=== PATIENT | female | born 1985 | race Caucasian/White ===

== ENCOUNTER → 2017-01-14 | Outpatient (CLI) | payer OTHER ==
[~2017-01-14] MED LIST: CLON0.5T3 PO; LEVO100T7 PO; METO50TA7 PO; NORE1TAB61 PO; OMEP20TA PO; PRLSR20 PO; VENL150C56 PO
== END | disposition home or self-care (01) ==
LOC: C.LAB1850 11:26
PROVIDERS: ATTEND Internal Medicine
DX: E03.9 Hypothyroidism, unspecified (principal)

== ENCOUNTER → 2017-02-03 | Outpatient (CLI) | payer OTHER ==
[2017-02-03 12:51] LABS: URINE APPEARANCE CLEAR (CLEAR); URINE BILIRUBIN NEG (NEG); URINE COLOR YELLOW; URINE EPITHELIAL CELL AUTO 20-30 /lpf (0-5); URINE NITRITE NEG (NEG); URINE SPECIFIC GRAVITY 1.014 (1.000-1.030); UROBILINOGEN NEG (NEG)
[2017-02-03 13:00] LABS: MANUAL MICROSCOPIC REQUIRED? NO; REVIEW REQ? NO
== END | disposition home or self-care (01) ==
LOC: C.LABBFT 10:32
PROVIDERS: ATTEND Internal Medicine
DX: R39.9 Unspecified symptoms and signs involving the genitourinary system (principal)

== ENCOUNTER → 2017-02-09 | Outpatient (CLI) | payer OTHER ==
[2017-02-09 13:01] LABS: LYME DISEASE AB IGG NEG (NEG); LYME DISEASE AB IGM NEG (NEG)
== END | disposition home or self-care (01) ==
LOC: C.LAB1850 08:27
PROVIDERS: ATTEND Internal Medicine
DX: M25.50 Pain in unspecified joint (principal); E03.9 Hypothyroidism, unspecified

== ENCOUNTER 2017-03-11 10:21 | Emergency (ER) | payer OTHER ==
[~2017-03-11] VITALS: Ht 157.5 cm; Wt 65.2 kg
[~2017-03-11 10:21] MED LIST changes: -LEVO100T7 PO
[2017-03-11 10:30] VITALS: TEMP 36.7; Ht 157.5 cm; Wt 65.2 kg
[2017-03-11] MEDS ORDERED: LEVO100T7 PO (11:00)
--- NOTE | 2017-03-11 11:25 | EMERGENCY ROOM VISIT NOTE ---
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 Patient was attempting to draw blood from a patient when he pulled his arm away, causing her to puncture her left second finger with a dirty needle. This occurred yesterday in the outpatient lab at the [facility]. Immediately stopped and cleansed the finger with soap and water. Bleeding was controlled. She denies numbness, tingling, or loss of motion. She contacted her supervisor fine grading, but apparently they were unable to arrange follow-up until today. Source patient is known. History of the source patient is not known at this time. She has had the hepatitis B vaccination and her tetanus is current. This is her third needle stick injury while working at this facility. PMH: Electronic medical records are reviewed and summarized as above/below. See Problem List. SOCIAL HISTORY: Patient is a 30-year-old female who lives with family. The patient works at [employer]. Physical Exam: VITALS: Nursing notes reviewed and vitals are stable. GENERAL: Pleasant 31-year-old white female who is awake and alert and in no acute distress. SKIN: Warm and dry with good turgor. No abrasions. No skin injury noted to the left second finger. No edema. Capillary refill is 2+. MUSCULOSKELETAL: Patient has full active range of motion of the LEFT second digit. Normal strength. NEURO: Gross sensation is intact across the affected finger. ED COURSE: The patient was seen and assessed as above. She has had work- related needlestick injuries in the past and is familiar with the process. Consents for testing and laboratory studies were obtained. The patient has been in touch with Employee Health and was advised to follow with them for the results of her blood work and for further testing as indicated. The patient is able to obtain the source patient name for follow-up. The patient declined HIV prophylaxis. Problem List Medical Problems: (1) Asthma, Unspecified Status: Chronic (2) Depressive Disorder Nec Status: Chronic (3) Esophageal Reflux Status: Chronic (4) Hypothyroidism Nos Status: Chronic (5) Intrauterine Status: Resolved (6) Irritable Bowel Syndrome Status: Chronic (7) Irritable Bowel Syndrome Status: Chronic (8) Placental abruption Status: Resolved (9) Smoker Status: Resolved (10) Vaginal delivery Status: Resolved Current/Historical Medications Scheduled Levothyroxine Sodium (Levothyroxine Sodium), 1 TAB PO DAILY Metoprolol Succ (Toprol Xl) (Toprol-Xl), 50 MG PO DAILY Norethindrone & Eth Estradiol (Kayla), 1 TAB PO DAILY Omeprazole (Prilosec), 20 MG PO DAILY Venlafaxine Hcl (Effexor Extended Rel), 150 MG PO DAILY Allergies Coded Allergies: Latex (Verified Allergy, Severe, THROAT SWELLS (PER PT), 03/11/17) Codeine (Verified Allergy, Unknown, Unknown rxn, 03/11/17) Vital Signs Date Time Temp Pulse Resp B/P Pulse Ox O2 Delivery O2 Flow Rate FiO2 03/11/17 11:32 77 18 116/76 98 03/11/17 10:30 36.7 77 18 113/75 100 Room Air Departure Information Impression Primary Impression: Accidental needlestick injury with exposure to body fluid Additional Impression: Work related injury Referrals Vicky Hernandez M.D. (PCP) Cait Malloy Patient Instructions [facility] [employer] Additional Instructions Follow up with employee health for further care and test results. Problem Qualifiers
[2017-03-11 11:32] VITALS: BP 116/76; PULSE 77; O2SAT 98
== END 2017-03-11 11:30 | disposition home or self-care (01) ==
LOC: C.EDB 10:22 → C.EDD 11:30
DX: S60.941A Unspecified superficial injury of left index finger, initial encounter (principal); Z77.21 Contact with and (suspected) exposure to potentially hazardous body fluids; W46.0XXA Contact with hypodermic needle, initial encounter; Y93.89 Activity, other specified; Y99.0 Civilian activity done for income or pay; Y92.29 Other specified public building as the place of occurrence of the external cause; J45.909 Unspecified asthma, uncomplicated; F32.9 Major depressive disorder, single episode, unspecified; K21.9 Gastro-esophageal reflux disease without esophagitis; E03.9 Hypothyroidism, unspecified; Z87.891 Personal history of nicotine dependence; Z98.890 Other specified postprocedural states; Z79.899 Other long term (current) drug therapy

== ENCOUNTER → 2017-04-20 | Outpatient (CLI) | payer OTHER ==
[~2017-04-20] MED LIST changes: -CLON0.5T3 PO; +LEVO100T7 PO; -OMEP20TA PO
== END | disposition home or self-care (01) ==
LOC: C.LAB 09:43
PROVIDERS: ATTEND Internal Medicine
DX: E03.9 Hypothyroidism, unspecified (principal)

== ENCOUNTER → 2017-06-15 | Outpatient (CLI) | payer OTHER ==
--- NOTE | 2017-06-15 11:09 | DIAGNOSTIC IMAGING REPORT ---
LEFT FOOT MIN 3 VIEWS ROUTINE CLINICAL HISTORY: 31 years-old Female presenting with swelling of the left foot joint. TECHNIQUE: Frontal, oblique, and lateral views of the left foot were obtained. COMPARISON: Correlation made to plain radiographs of the right foot from 2008. FINDINGS: Prominent os naviculare. Os trigonum may also be present. No acute fracture or malalignment. No radiopaque foreign body. Soft tissues grossly normal. IMPRESSION: No acute osseous injury of the left foot. Electronically signed by: Mario Price M.D. 06/15/2017 11:08 AM Dictated Date/Time: 06/15/2017 11:07 AM
== END | disposition home or self-care (01) ==
LOC: C.RAD1850 10:31
PROVIDERS: ATTEND Physician Assistant Medical
DX: M25.475 Effusion, left foot (principal)

== ENCOUNTER → 2017-06-18 | Outpatient (CLI) | payer OTHER ==
[2017-06-18 10:01] LABS: ESTIMATED AVERAGE GLUCOSE 111 mg/dl; HA1C FLAG Normal (Normal)
== END | disposition home or self-care (01) ==
LOC: C.LAB1850 08:09
PROVIDERS: ATTEND Physician Assistant Medical
DX: R73.09 Other abnormal glucose (principal)

== ENCOUNTER → 2017-11-10 | Outpatient (CLI) | payer OTHER | END | disposition home or self-care (01) | LOC: C.LAB1850 07:55 | PROVIDERS: ATTEND Internal Medicine | DX: E03.9 Hypothyroidism, unspecified (principal) ==

== ENCOUNTER → 2017-11-19 | Outpatient (CLI) | payer OTHER | END | disposition home or self-care (01) | LOC: C.LABSPEC 11-19 13:21 | PROVIDERS: ATTEND Internal Medicine | DX: R10.9 Unspecified abdominal pain (principal) ==

== ENCOUNTER → 2018-06-17 | Outpatient (CLI) | payer OTHER ==
[~2018-06-17] MED LIST changes: -METO50TA7 PO; +METO50TA8 PO
== END | disposition home or self-care (01) ==
LOC: C.LAB 06:23
PROVIDERS: ATTEND Internal Medicine
DX: Z13.220 Encounter for screening for lipoid disorders (principal); Z13.1 Encounter for screening for diabetes mellitus